=== PATIENT | male | born 1955 | race Caucasian/White ===

== ENCOUNTER 2023-01-07 11:55 | Outpatient (REF) | payer MEDICARE, SELFPAY | END 2023-01-07 11:56 | disposition home or self-care (01) | LOC: HO.BBR 11:55 | PROVIDERS: Visit Provider Internal Medicine Hematology | DX: Z13.89 Encounter for screening for other disorder (principal) ==

== ENCOUNTER 2023-05-07 08:51 | Outpatient (REF) | payer MEDICARE, SELFPAY | END 2023-05-07 08:52 | disposition home or self-care (01) | LOC: HO.BBR 08:51 | PROVIDERS: Visit Provider Internal Medicine Hematology | DX: Z13.89 Encounter for screening for other disorder (principal) ==

== ENCOUNTER 2023-09-07 08:52 | Outpatient (REF) | payer MEDICARE, SELFPAY | END 2023-09-07 08:53 | disposition home or self-care (01) | LOC: HO.BBR 08:52 | PROVIDERS: PCP Family Medicine; Visit Provider Internal Medicine Hematology | DX: Z13.89 Encounter for screening for other disorder (principal) ==

== ENCOUNTER 2024-07-12 09:00 | Outpatient (REF) | payer MEDICARE, SELFPAY | END 2024-07-12 09:01 | disposition home or self-care (01) | LOC: HO.BBR 09:00 | PROVIDERS: PCP Family Medicine; Visit Provider Internal Medicine Hematology | DX: Z13.89 Encounter for screening for other disorder (principal) ==

== ENCOUNTER 2024-11-14 08:57 | Outpatient (REF) | payer MEDICARE, SELFPAY ==
--- OUTSIDE RECORDS SUMMARY | 2024-11-14 09:18 | XMS_ITS | Encounter Summary ---
Author Organization [facility] Address [address] [place] [address] Care Team Providers Care Sweep Molder Name Role Phone Unavailable Primary Care Provider Unavailabl e Encounter Details Date Type Department Care Team (Late st Contact Info) Description 09/04/2024 Lab Requisition [facility] - Main Lab [address] [facility] [place] [address] Arvin Singh MD [address] [facility] [address] [place] [address] Elevated prostate specific antigen (PSA) Social History Tobacco Use Types Packs/Day Years Used Date Smoking Tobacco: Never Assessed Sex and Gender Information Value Date Recorded Sex Assigned at Not on file Gender Identity Not on file Sexual Orientation Not on file documented as of this encounter Plan of Treatment Not on file documented as of this encounter Procedures Procedure Name Priority Date/Time Associated Diagnosis Comments FLUOROQUINOLONE RESISTANT GNR IDENTIFICATION AND SUSCEPTIBILITY Routine 09/04/2024 8:00 AM EST Elevated prostate specific antigen (PSA) ..ORGANISM ID ([facility] BILL ONLY) Routine 09/04/2024 8:00 AM EST Elevated prostate specific antigen (PSA) ..SENSITIVITY ORGANISM #1 ([facility] BILL ONLY) Routine 09/04/2024 8:00 AM EST Elevated prostate specific antigen (PSA) CULTURE FLUOROQUINOLONE RESISTANT ORGANISM Routine 09/04/2024 8:00 AM EST Elevated prostate specific antigen (PSA) documented in this encounter Results * Organism ID ([facility] Bill Only) (09/04/2024 8:00 AM EST) Organism ID Performed 09/09/2024 8:06 AM EST [facility] Swab Rectum structure / Unknown 09/04/2024 8:00 AM EST 09/04/2024 10:02 AM EST Narrative [facility] - 09/09/2024 8:06 AM EST Performed at: ??02 - [facility] [address], [address], [place], [place] ??[id number] Quality Nurse: Mihai De Leon MD, Phone: ??[phone] Arvin Singh MD LAB MICROBIOLOGY - G ENERAL ORDERABLES Performing Organization Address [facility] de Phone Number [facility] * Sensitivity Organism #1 ([facility] Bill Only) (09/04/2024 8:00 AM EST) Sensitivity Organism #1 Performed 09/09/2024 8:06 AM EST [facility] Swab Rectum structure / Unknown 09/04/2024 8:00 AM EST 09/04/2024 10:02 AM EST Narrative [facility] - 09/09/2024 8:06 AM EST Performed at: ??02 - [facility] [address], [address] [facility], [place], [place] ??[id number] Quality Nurse: Mihai De Leon MD, Phone: ??[phone] Arvin Singh MD LAB MICROBIOLOGY - G ENERAL ORDERABLES Performing Organization Address [facility] de Phone Number [facility] * (ABNORMAL) Fluoroquinolone resistant GNR identification and susceptibility (09/04/2024 8:00 AM EST) Result 1 Escherichia coli(A) 09/09/2024 8:06 AM EST [facility] Antimicrobial Susceptibility S = Susceptible; I = Intermediate; R = Resistant 09/09/2024 8:06 AM EST [facility] Comment: ? P = Positive; N = Negative ?MICS are expressed in micrograms per mL ?? Antibiotic ? RSLT#1 ?RSLT#2 ?RSLT#3 ?RSLT#4 Amoxicillin/Clavulanic Acid ?S Ampicillin ? R Cefepime ? S Ceftriaxone ?S Cefuroxime ? S Ciprofloxacin ?R Ertapenem ?S Gentamicin ? S Imipenem ? S Levofloxacin ? R Meropenem ?S Piperacillin/Tazobactam ?S Tetracycline ? S Tobramycin ? S Trimethoprim/Sulfa ? S Swab Rectum structure / Unknown 09/04/2024 8:00 AM EST 09/04/2024 10:02 AM EST Narrative [facility] - 09/09/2024 8:06 AM EST Performed at: ??01 - [facility] [address] ??[id number] Quality Nurse: Loly Simpson MD, Phone: ??[phone] Arvin Singh MD LAB MICROBIOLOGY - G ENERAL ORDERABLES [facility] * (ABNORMAL) Culture fluoroquinolone resistant organism (09/04/2024 8:00 AM EST) Fluoroquinolone Resist GNR Cul Final report(A) 09/09/2024 8:06 AM EST [facility] Swab Rectum structure / Unknown 09/04/2024 8:00 AM EST 09/04/2024 10:02 AM EST Narrative [facility] - 09/09/2024 8:06 AM EST Performed at: ??01 - [facility] [address] ??[id number] Quality Nurse: Loly Simpson MD, Phone: ??[phone] Arvin Singh MD LAB MICROBIOLOGY - G ENERAL ORDERABLES [facility] documented in this encounter Visit Diagnoses Diagnosis Elevated prostate specific antigen (PSA) documented in this encounter
--- OUTSIDE RECORDS SUMMARY | 2024-11-14 09:18 | XMS_ITS | Clinical Summary ---
Author Organization [address] [facility] Address [address] [place] [address] Phone Care Team Providers Care Charging Operator Name Role Phone Unavailable Primary Care Provider Unavailabl e Encounters Date Type Department Care Team Description 09/04/2024 Lab Requisition [facility] - Main Lab [address] [place] [address] Arvin Singh MD Elevated prostate specific antigen (PSA) from Last 3 Months Social History Tobacco Use Types Packs/Day Years Used Date Smoking Tobacco: Never Assessed Sex and Gender Information Value Date Recorded Sex Assigned at Not on file Gender Identity Not on file Sexual Orientation Not on file Plan of Treatment Health Maintenance Due Date Last Done Comments DTaP,Tdap,and Td Vaccines (1 - Tdap) 1973 Zoster Vaccines (1 of 2) 2004 Pneumococcal Vaccine: 65+ Ye ars (1 of 1 - PCV) 2019 Abdominal Aortic Aneurysm (A AA) Screen 11/05/2023 Cholesterol Screening (Lipid Panel) 11/05/2023 Colorectal Cancer Screening: Colonoscopy 11/05/2023 Depression Screening 11/05/2023 Falls Risk Assessment 11/05/2023 Hepatitis C Screening 11/05/2023 Medicare Annual Wellness Visit 11/05/2023 Social Influencers of Health Screening 11/05/2023 COVID-19 Vaccine ( - 2023-2 5 season) 2024 Influenza Vaccine (#1) 2024 RSV Immunization Patients 60 + Years Old (1 - 1-dose 75+ series) 2029 HIB Vaccines Aged Out No longer eligi ble based on patient's age to complete this topic HPV Vaccines Aged Out No longer eligi ble based on patient's age to complete this topic Hepatitis A Vaccines Aged Out No long er eligible based on patient's age to complete this topic Hepatitis B Vaccines Aged Out No long er eligible based on patient's age to complete this topic IPV Vaccines Aged Out No longer eligi ble based on patient's age to complete this topic MMR Vaccines Aged Out No longer eligi ble based on patient's age to complete this topic Meningococcal ACWY Vaccine Aged Out N o longer eligible based on patient's age to complete this topic RSV Immunization Patients Un dimas 20 months Aged Out No longer eligible b ased on patient's age to complete this topic Varicella Vaccines Aged Out No longer eligible based on patient's age to complete this topic Procedures Procedure Name Priority Date/Time Associated Diagnosis Comments ..ORGANISM ID ([facility] BILL ONLY) Routine 09/04/2024 8:00 AM EST Elevated prostate specific antigen (PSA) ..SENSITIVITY ORGANISM #1 ([facility] BILL ONLY) Routine 09/04/2024 8:00 AM EST Elevated prostate specific antigen (PSA) FLUOROQUINOLONE RESISTANT GNR IDENTIFICATION AND SUSCEPTIBILITY Routine 09/04/2024 8:00 AM EST Elevated prostate specific antigen (PSA) CULTURE FLUOROQUINOLONE RESISTANT ORGANISM Routine 09/04/2024 8:00 AM EST Elevated prostate specific antigen (PSA) from Last 3 Months Results * (ABNORMAL) Fluoroquinolone resistant GNR identification and [...] AM EST Performed at: ??01 - [facility] [address] ??[id number] Jacquard Loom Fixer: Loly Simpson MD, Phone: ??[phone] Arvin Singh MD LAB MICROBIOLOGY - G ENERAL ORDERABLES [facility] * Organism ID ([facility] Bill Only) (09/04/2024 8:00 AM EST) Organism ID Performed 09/09/2024 8:06 AM EST [facility] Swab Rectum structure / Unknown 09/04/2024 8:00 AM EST 09/04/2024 10:02 AM EST Narrative [facility] - 09/09/2024 8:06 AM EST Performed at: ??02 - [facility] [address], [address] [place] [id number] Jacquard Loom Fixer: Mihai De Leon MD, Phone: ??[phone] Arvin Singh MD LAB MICROBIOLOGY - G ENERAL ORDERABLES Performing Organization Address City/[facility]/ZIP Co de Phone Number [facility] * Sensitivity Organism #1 ([facility] Bill Only) (09/04/2024 8:00 AM EST) Sensitivity Organism #1 Performed 09/09/2024 8:06 AM EST [facility] Swab Rectum structure / Unknown 09/04/2024 8:00 AM EST 09/04/2024 10:02 AM EST Narrative [facility] - 09/09/2024 8:06 AM EST Performed at: ??02 - [facility] [address], [address] [place] [address] ??[id number] Jacquard Loom Fixer: Mihai De Leon MD, Phone: ??[phone] Arvin Singh MD LAB MICROBIOLOGY - G ENERAL ORDERABLES Performing Organization Address [facility] Co de Phone Number [facility] * (ABNORMAL) Culture fluoroquinolone resistant organism (09/04/2024 8:00 AM EST) Fluoroquinolone Resist GNR Cul Final report(A) 09/09/2024 8:06 AM EST [facility] Swab Rectum structure / Unknown 09/04/2024 8:00 AM EST 09/04/2024 10:02 AM EST Narrative [facility] - 09/09/2024 8:06 AM EST Performed at: ??01 - [facility] [address] ??[id number] Jacquard Loom Fixer: Loly Simpson MD, Phone: ??[phone] Arvni Singh MD LAB MICROBIOLOGY - G ENERAL ORDERABLES [facility] from Last 3 Months
== END 2024-11-14 08:58 | disposition home or self-care (01) ==
LOC: HO.BBR 08:57
PROVIDERS: PCP Family Medicine; Visit Provider Internal Medicine Hematology
DX: Z13.89 Encounter for screening for other disorder (principal)

== ENCOUNTER 2025-06-27 12:48 | Outpatient (REF) | payer MEDICARE, SELFPAY | END 2025-06-27 12:49 | disposition home or self-care (01) | LOC: HO.BBR 12:48 | PROVIDERS: PCP Family Medicine; Visit Provider Internal Medicine Hematology | DX: Z13.89 Encounter for screening for other disorder (principal) ==